=== PATIENT | female | born 1995 | race Caucasian/White ===

== ENCOUNTER → 2017-03-16 | Outpatient (CLI) | payer BC ==
--- NOTE | 2017-03-16 14:25 | XR ---
Abdomen HISTORY: Left-sided kidney stones, abdominal pain, R 10.9 Frontal view of the abdomen submitted and correlated to prior abdomen 05/13/2013 Overlying bowel gas may obscure detail. Lung bases are not included in the exam. No evident bowel obs truction or pneumoperitoneum. IMPRESSION: Patient's previously identified renal calcifications may be obscured by overlying bowel g as.
== END | disposition home or self-care (01) ==
LOC: RADXRMAIN 14:08
PROVIDERS: ATTEND Family Medicine
DX: R10.9 Unspecified abdominal pain (principal)
CPT/HCPCS: 74000